=== PATIENT | female | born 1955 | race African-American/Black ===

== ENCOUNTER → 2019-07-16 | Outpatient (CLI) | payer OTHER ==
--- NOTE | 2019-07-16 13:31 | KCIC ---
EXAM: Cervical spine, 3 views; pelvis, single view; bilateral knees, is 3 views; bilateral hands, 3 views; bilateral feet, 3 views. HISTORY: Rheumatoid arthritis. COMPARISON: None. FINDINGS: Cervical spine: 3 views of cervical spine are obtained. There is mild reversal of cervical lordosis. There is degenerative endplate remodeling with anterior predominant spurring at the mid and lower cervical levels. There is multilevel facet arthropathy. There is no fracture or listhesis. Pelvis: A frontal view the pelvis is obtained. There is mild uniform bilateral hip joint space narrowing. There is no fracture, dislocation or subluxation. There are metallic clips overlying the pelvis. There is degenerative change at the lumbosacral junction. Bilateral knees: 3 views of both knees are obtained. There is mild right medial compartment joint space narrowing and right proximal bilateral spurring. There are trace knee effusions. Bilateral hands: 3 views of both hands are obtained. There is no acute fracture, dislocation or subluxation. There is a bone island within the left capitate. There is minimal spurring involving the right first carpometacarpal joint. Bilateral feet: 3 views of both feet are obtained. There is mild right greater than left first metatarsophalangeal joint spurring. There is minimal enthesopathy along the Achilles tendon insertions. There is suggestion of left pes planus, likely projectional. There are few accessory ossicles along the mid mid feet. IMPRESSION: 1. No acute osseous finding. 2. Multilevel degenerative change involving the cervical spine and slight reversal of cervical lordosis. 3. Mild bilateral hip joint space narrowing, a finding which can be seen with rheumatoid arthritis. 4. Mild medial compartment predominant tricompartmental osteoarthritis of the right knee with suspected small knee effusions. 5. Minimal right first carpometacarpal joint spurring and mild right greater than left first metatarsal phalangeal joint spurring, favoring osteoarthritis. Electronically signed by: Luann Botello MD (07/16/2019 1:28 PM) [place] [id number]
== END | disposition home or self-care (01) ==
LOC: KCIC 12:19
PROVIDERS: ATTEND Internal Medicine Rheumatology
DX: M47.817 Spondylosis without myelopathy or radiculopathy, lumbosacral region (principal); M47.812 Spondylosis without myelopathy or radiculopathy, cervical region; M17.11 Unilateral primary osteoarthritis, right knee; M25.462 Effusion, left knee; M25.461 Effusion, right knee; M76.9 Unspecified enthesopathy, lower limb, excluding foot; M77.52 Other enthesopathy of left foot and ankle; M77.51 Other enthesopathy of right foot and ankle; M05.79 Rheumatoid arthritis with rheumatoid factor of multiple sites without organ or systems involvement
CPT/HCPCS: 72040; 72170; 73130; 73562; 73630

== ENCOUNTER → 2020-11-05 | Outpatient (CLI) | payer MEDICARE, MEDICAID ==
--- NOTE | 2020-11-05 13:49 | KCIC ---
EXAM: XR STERNOCLAVICULAR JOINTS 3+ VIEWS. HISTORY: Rheumatoid arthritis. COMPARISON: None. FINDINGS: The right clavicular head is positioned 7 mm more superiorly than the left. Mild rotation t o the left is suspected. There are no clear erosions or degenerative changes about either sternoclavi cular joint for patient age. Alignment does not significantly change with and without stress. IMPRESSION: 1. Mild asymmetry of the sternoclavicular joints may be a variant of normal. There is no clear sublux ation with stress. There are no clear degenerative changes for patient age. Electronically signed by: Ish Cox MD (11/05/2020 1:47 PM) [id number]
== END ==
LOC: KCIC 12:32
PROVIDERS: ATTEND Internal Medicine Rheumatology
DX: M05.79 Rheumatoid arthritis with rheumatoid factor of multiple sites without organ or systems involvement (principal); M06.812 Other specified rheumatoid arthritis, left shoulder; M06.811 Other specified rheumatoid arthritis, right shoulder
CPT/HCPCS: 71130